=== PATIENT | male | born 1975 | race Caucasian/White ===

== ENCOUNTER → 2017-11-22 07:01 | Outpatient (CLI) | payer BC, SELFPAY ==
[2017-11-22 10:26] LABS: Absolute Lymphocyte Count 1.51 X10^3/ul (0.83-4.51); Basophil# 0.03 X10^3/uL; Basophil% 0.6 % (0-1); Eosinophil# 0.17 X10^3/uL; Eosinophils% 3.2 % (0-5); Hematocrit 44.1 % (40-54); Hemoglobin 15.2 g/dl (13.0-16.5); Lymphocyte # 1.51 X10^3/ul (4.0); Lymphocyte % 28.1 % (19-41); Mean Corp Hgb Conc 34.5 g/gl (32-36); Mean Corpuscular Hgb 31.1 pg (27.0-32.0); Mean Corpuscular Volume 90.2 fL (80-94); Mean Platelet Vol. 10.7 fl (6.2-12.0); Monocyte# 0.61 X10^3/uL; Monocyte% 11.4 % (0-10); Neutrophil # 3.04 X10^3/uL (2.7-7.7); Neutrophil % 56.5 % (47-70); Platelet Count 230 K/mm3 (150-450); RBC Distribution Width CV 12.5 % (11.6-14.6); RBC Distribution Width SD 40.9 fl (35.1-43.9); Red Blood Count 4.89 M/mm3 (4.6-6.2); White Blood Count 5.4 K/mm3 (4.4-11.0)
[2017-11-22 10:30] LABS: POSITIVE COUNT NO; POSITIVE DIFFERENTIAL NO; POSITIVE MORPHOLOGY NO
[2017-11-22 10:43] LABS: Vitamin B12 303 pg/mL (211-911)
[2017-11-22 10:48] LABS: ALB/GLOB Ratio 1.1 RATIO (0.9-2.4); AST(SGOT) 29 U/L (15-37); Alanine Aminotransfer ALT/SGPT 66 U/L (16-61); Albumin, Serum 3.9 g/dL (3.2-5.0); Alkaline Phosphatase 70 U/L (45-117); Anion Gap 12 (5-15); BUN 12 mg/dL (7-18); Calcium,Total 8.6 mg/dL (8.5-10.1); Chloride 104 mmol/L (98-107); Cholesterol 165 mg/dL (200); Creatinine, Serum 0.86 mg/dL (0.70-1.30); EST Glomerular Filtration Rate 103 mL/min (>60); Est Glom Filt Rate - Afr Amer 124 mL/min (>60); Globulin 3.4 g/dL (2.2-4.2); Glucose 122 mg/dL (74-106); High Density Lipoprotein 30 mg/dL; PSA,Total - Annual Screen 1.26 ng/mL (0.00-4.00); Potassium 4.1 mmol/L (3.5-5.1); Protein, Total 7.3 g/dL (6.4-8.2); Sodium Level 140 mmol/L (136-145); T4 Total, Thyroxin 10.2 ug/dL (4.5-12.1); Thyroid Stim Hormone (TSH) 1.13 uIU/mL (0.358-3.74); Triglycerides 223 mg/dL; Very Low Density Lipoprotein 45 mg/dL (5-40)
== END ==
PROVIDERS: Family Provider Internal Medicine; PCP Internal Medicine; Visit Provider Physician Assistant
DX: E66.9 Obesity, unspecified (principal)
CPT/HCPCS: 36415; 80053; 80061; 82607; 84153; 84403; 84436; 84443; 85025; G0103

== ENCOUNTER → 2018-08-12 | Outpatient (CLI) | payer BC, SELFPAY ==
--- NOTE | 2018-08-12 09:40 | STRESSREP ---
Stress Test Report Date: 08-12-18 Procedure: Exercise tolerance test/imaging study Indications: Fatigue; elevated CRP Consent: Per the patient Procedure: The patient exercised on a Dong protocol for 8 minutes completing Stage II and 2 minutes of Stage III achieving a peak heart rate of 164 bpm (93 % predicted maximal heart rate) with a peak blood pressure 210/110 mmHg and a peak MET capacity of 9 METs. The baseline ECG demonstrated normal sinus rhythm; nonspecific T wave abnormality. The peak exercise ECG demonstrated continued nonspecific T wave abnormality. There were no cardiac dysrhythmias pretest, during exercise, or recovery. The functional capacity was considered average. There was no complaint of chest discomfort during exercise or recovery. The examination was discontinued secondary to knee discomfort. Impression: 1. Technically adequate (percent predicted maximal heart rate greater than 85%) exercise tolerance test 2. Peak exercise ECG with continued nonspecific T wave abnormality 3. There were no cardiac dysrhythmias pretest, during exercise, or recovery 4. Blood pressure response to exercise: Resting hypertension-exaggerated response 5. Nuclear images pending Myocardial perfusion imaging study: Technique: The patient was injected with 14.8 mCi of technetium 99m Cardiolite and subsequently rest SPECT Cardiolite nuclear imaging was obtained in the horizontal long, vertical long, and short axis views. The patient exercised on a Dong protocol for 8 minutes completing Stage II and 2 minutes of Stage III achieving a peak heart rate of 164 bpm (93 % predicted maximal heart rate) with a peak blood pressure 210/110 mmHg and a peak MET capacity of 9 METs. The patient was injected with 44.7 mCi of technetium 99m Cardiolite and subsequently stress SPECT Cardiolite nuclear imaging was obtained in the horizontal long, vertical long, and short axis views. A gated Cardiolite study at peak stress was obtained. Interpretation: Rest and stress SPECT Cardiolite nuclear imaging status post realignment, normalization, and attenuation correction, demonstrates the appearance of relative uniform tracer uptake and myocardial perfusion appearing within normal limits. There is end systolic thickening and brightening. The gated Cardiolite study demonstrates myocardial thickening and inward wall motion. The reported LVEF is the 65 %. Impression: 1. Rest and stress SPECT Cardiolite nuclear imaging demonstrate relative uniform tracer uptake and myocardial perfusion appearing within normal limits. 2. The gated Cardiolite study reports an LVEF of 65 %. This note was generated with Dailysingle software. It may contain incorrect words, spelling, and punctuation that were not noted in checking the note before signing.
== END | disposition home or self-care (01) ==
PROVIDERS: Family Provider Internal Medicine; PCP Internal Medicine; Referring Provider Registered Nurse; Visit Provider Registered Nurse
DX: R79.82 Elevated C-reactive protein (CRP) (principal); R53.83 Other fatigue
CPT/HCPCS: 78452; 93017; A9500; A4216

== ENCOUNTER → 2020-04-20 08:41 | Outpatient (CLI) | payer BC, SELFPAY ==
[2020-04-20 09:43] LABS: Hematocrit 52.1 % (40-54); Hemoglobin 17.5 g/dL (13.0-16.5); Mean Corp Hgb Conc 33.6 g/dL (32-36); Mean Corpuscular Volume 92.2 fL (80-94); Mean Platelet Vol. 10.2 fl (6.2-12.0); Platelet Count 193 K/mm3 (150-450); RBC Distribution Width SD 41.1 fl (35.1-43.9); Red Blood Count 5.65 M/mm3 (4.6-6.2); White Blood Count 5.6 K/mm3 (4.4-11.0)
[2020-04-20 10:15] LABS: Hemoglobin A1c 5.9 % (3.8-5.6)
[2020-04-20 10:23] LABS: Homocysteine 8.4 umol/L (3.2-10.7)
[2020-04-20 10:52] LABS: ALB/GLOB Ratio 1.2 RATIO (0.9-2.4); AST(SGOT) 25 U/L (15-37); Alanine Aminotransfer ALT/SGPT 62 U/L (16-61); Albumin, Serum 4.1 g/dL (3.2-5.0); Alkaline Phosphatase 71 U/L (45-117); Anion Gap 3 (5-15); BUN 8 mg/dL (7-18); BUN/Creat Ratio 7.7 RATIO (10-20); CRP, High Sensitivity Cardiac 4.74 mg/L; Calcium,Total 8.7 mg/dL (8.5-10.1); Chloride 107 mmol/L (98-107); Cholesterol 153 mg/dL (200); Creatinine, Serum 1.04 mg/dL (0.70-1.30); EST Glomerular Filtration Rate 81 mL/min (>60); Est Glom Filt Rate - Afr Amer 99 mL/min (>60); Estradiol 51.1 pg/mL; Follicle Stimulating Hormone 0.2 mIU/mL; Globulin 3.4 g/dL (2.2-4.2); Glucose 119 mg/dL (74-106); High Density Lipoprotein 28 mg/dL; Iron 101 ug/dL (65-175); Luteinizing Hormone < 0.2 mIU/mL; Magnesium 2.2 mg/dL (1.6-2.6); PSA,Total - Annual Screen 2.09 ng/mL (0.00-4.00); Potassium 4.5 mmol/L (3.5-5.1); Prolactin 8.9 ng/mL; Protein, Total 7.5 g/dL (6.4-8.2); Sodium Level 136 mmol/L (136-145); T4 Free Direct 1.06 ng/dL (0.76-1.46); T4 Total, Thyroxin 8.4 ug/dL (4.5-12.1); Thyroid Stim Hormone (TSH) 0.95 uIU/mL (0.358-3.74); Triglycerides 184 mg/dL; Very Low Density Lipoprotein 37 mg/dL (5-40)
[2020-04-22 08:19] LABS: Progesterone Level 0.52 ng/mL (See Comment); Vitamin B12 384 pg/mL (211-911); Vitamin D,25 Hydroxy 108.9 ng/mL
[2020-04-24 08:08] LABS: Insulin Like Growth Factor 104 ng/mL (81-263); Testosterone, % Free 3.68 % (1.50-4.20); Testosterone, Free 20.87 ng/dL (5.00-21.00)
[2020-04-24 15:24] LABS: Sex Hormone-binding Globulin 19.8 nmol/L (16.5-55.9); Testosterone, Total 567 ng/dL (264-916)
== END ==
PROVIDERS: PCP Internal Medicine; Referring Provider Nurse Practitioner Family; Visit Provider Nurse Practitioner Family
DX: R53.82 Chronic fatigue, unspecified (principal); M62.81 Muscle weakness (generalized); E66.9 Obesity, unspecified; E29.1 Testicular hypofunction
CPT/HCPCS: 36415; 80053; 80061; 82306; 82533; 82607; 82627; 82670; 82746; 83001; 83002; 83036; 83090; 83540; 83735; 84144; 84146; 84153; 84270; 84305; 84402; 84403; 84436; 84439; 84443; 84480; 85027; 86141; 82626; G0103

== ENCOUNTER 2022-07-03 05:21 | Emergency (ER) | payer OTHER, SELFPAY ==
[2022-07-03 05:21] VITALS: BP 189/105; PULSE 72; RESP 15; TEMP 36.6; O2SAT 97; BMI 44.4
--- NOTE | 2022-07-03 05:46 | CT_ITS ---
EXAM: CT Abdomen And Pelvis W/O Contrast Injection HISTORY: left flank pain TECHNIQUE: Routine protocol CT abdomen and pelvis. IV Contrast: None.. Oral contrast: None. RADIATION DOSAGE (If Supplied By Facility): CTDIvol = ( 34.32 ) mGy, DLP = ( 2118.15 ) mGycm Individualized dose optimization techniques were used for this CT. COMPARISON: None. LIMITATIONS: None. FINDINGS: LOWER CHEST: Included lung bases are clear. Mild coronary artery calcifications. LIVER: Enlarged. Fatty infiltration. GALLBLADDER AND BILIARY TREE: Grossly unremarkable. PANCREAS: Grossly unremarkable. SPLEEN: Grossly unremarkable. ADRENAL GLANDS: Grossly unremarkable. KIDNEYS AND URETERS: There are 2 calculi aligned in the distal left ureter at the ureterovesical junction, distal is 3 mm, and immediately proximal 2 mm calculus. The left ureter is dilated with mild left hydronephrosis and perinephric stranding. Several calculi in both kidneys. No hydronephrosis on the right. No hydronephrosis. PERITONEUM: No free air. No free fluid. BOWEL: No bowel obstruction. APPENDIX: Visualized and unremarkable. No evidence of acute appendicitis. VESSELS: Abdominal aorta is normal caliber. REPRODUCTIVE ORGANS: Grossly unremarkable URINARY BLADDER: Grossly unremarkable. ABDOMINAL WALL: Small bilateral inguinal hernias containing only fat, no bowel. BONES: Degenerative changes of the lumbar spine. CT/Abdomen/Pelvis without Cont IMPRESSION: Left ureteral calculi, 2 calculi in the distal left ureter, with mild left hydroureteronephrosis. Bilateral nephrolithiasis. Hepatomegaly and steatosis. Electronically Signed: Terri Eugene MD at 7:14 EDT ,
[2022-07-03 05:54] LABS: Absolute Lymphocyte Count 2.49 X10^3/uL (0.83-4.51); Absolute Neutrophil Count 5.3 X10^3/uL (2.0-7.7); Basophil# 0.06 X10^3/uL; Basophil% 0.7 % (0-1); Eosinophil# 0.15 X10^3/uL; Eosinophils% 1.6 % (0-5); Hematocrit 46.7 % (40-54); Hemoglobin 16.1 g/dL (13.0-16.5); Lymphocyte # 2.49 X10^3/ul (0.83-4.51); Lymphocyte % 27.2 % (19-41); Mean Corp Hgb Conc 34.5 g/dL (32-36); Mean Corpuscular Hgb 31.8 pg (27.0-32.0); Mean Corpuscular Volume 92.1 fL (80-94); Mean Platelet Vol. 10.5 fl (6.2-12.0); Monocyte# 1.07 X10^3/uL; Monocyte% 11.7 % (0-10); NRBC Flagged by Analyzer 0 % (0-5); Neutrophil # 5.34 X10^3/uL (2.7-7.7); Neutrophil % 58.5 % (47-70); Platelet Count 209 K/mm3 (150-450); RBC Distribution Width CV 12.1 % (11.6-14.6); RBC Distribution Width SD 40.6 fl (35.1-43.9); Red Blood Count 5.07 M/mm3 (4.6-6.2); White Blood Count 9.1 K/mm3 (4.4-11.0)
[2022-07-03] MEDS: Ketorolac 30 MG/ML Syringe IV (05:55)
[2022-07-03] MEDS: 0.9% Normal Saline 1,000 ML 999 ML IV (05:56)
[2022-07-03 05:59] LABS: Bacteria 0 SEEN /hpf (None Seen); Mucous, Urine 0 SEEN /hpf (<or=2+); Squamous Epithelial Cells - UA 0 SEEN /hpf (0-5); White Blood Cells 0 SEEN /hpf (0-5)
[2022-07-03 06:00] LABS: Color, Urine Yellow (Yellow); Glucose, Dipstick 100 mg/dl (Normal); Ketone-Dipstick 5 mg/dl (Negative); Leukocyte Esterase-Dipstick Negative /ul (Negative); Nitrite-Dipstick Negative (Negative); Occult Blood-Urine 150 /ul (Negative); Protein-Dipstick 30 mg/dl (Negative); Specific Gravity, Urine 1.025 (1.002-1.030); Urine Bilirubin Dipstick Negative (Negative); Urine Clarity Clear (Clear); Urine Urobilinogen Normal (Normal)
[2022-07-03 06:06] LABS: Red Blood Cells-Urine 10-25 SEEN /hpf (0-5)
--- NOTE | 2022-07-03 06:32 | EDS_ITS ---
HPI History of Present Illness Chief Complaint: Abd Pain Narrative Narrative: Patient is a 47-year-old male with no reported significant past medical history. He states that he noticed some pain in his left side yesterday morning which seemed to resolve throughout the day. He states the pain began to return around bedtime but it was not severe enough where he could not fall asleep. He states he woke around 3:30 in the morning with sharp stabbing pain along the left upper abdomen radiating towards the groin. He states he became nauseous secondary to the pain. He denies any recent trauma or excessive activity. He denies any dysuria or hematuria. He denies any IV drug use or loss of bowel or bladder control. He does state that his father and brother have history of kidney stones and he is concerned he may be having 1 at this time based on the sudden onset of his pain and therefore comes in for evaluation [facility] Medical History no medical history no medical history Home Medications ketorolac 10 mg tablet 10 mg PO 4X/DAY PRN PRN pain 5 days #20 tabs 07/03/22 [Rx Last Taken Unknown] oxycodone-acetaminophen 5 mg-325 mg tablet (Endocet) 1 tab PO Q6H PRN pain 3 days #12 tabs 07/03/22 [Rx Last Taken Unknown] tamsulosin 0.4 mg capsule (Flomax) 0.4 mg PO DAILY 14 days #14 caps 07/03/22 [Rx Last Taken Unknown] Allergy/AdvReac Type Severity Reaction Status Date / Time No Known Allergies Allergy Verified 07/03/22 05:24 Surgical History H/O foot surgery History of hernia surgery Hx of knee surgery Social History Smoking Status: Unknown if ever smoked ROS ROS ED Constitutional Constitutional ED: Denies chills or fever(s) ENT ENT ED: Denies sore throat Cardiovascular Cardiovascular: Denies chest pain Respiratory/Chest Respiratory/Chest: Denies cough or dyspnea Gastrointestinal Gastrointestinal: Reports abdominal pain and nausea; Denies diarrhea or vomiting Genitourinary Genitourinary ED: Denies dysuria, hematuria or urinary frequency Musculoskeletal Musculoskeletal: Reports back pain; Denies myalgias Integumentary Denies rash Neurologic Neurologic: Denies headache(s) Hematologic/Lymphatic Hematologic/Lymphatic: Denies easy bleeding or easy bruising EXAM Physical Exam Const Vital Signs: 07/03/22 05:21 07/03/22 06:58 Temperature 97.8 F Temperature Source Oral Pulse Rate 72 77 Respiratory Rate 15 15 Blood Pressure 189/105 H 175/103 H Blood Pressure Mean 133 127 Pulse Ox 97 97 Oxygen Delivery Method Room Air Room Air Positive well nourished, well developed and obese General Appearance ED: well developed Nutritional Appearance: obese Eyes PERRL and EOMs intact bilaterally General Eye ED: Negative for scleral icterus Neck supple Chest Wall palpation of chest normal Resp normal respiratory effort and clear to auscultation bilaterally Cardio regular rate and regular rhythm Rate: other Other Details: Radial pulses are plus 2 out of 4 bilaterally are equal and symmetric Carotid pulses are also equal and symmetric as well GI non-distended GI Narrative: Abdomen is obese soft and nondistended with normal active bowel sounds. There is pain on palpation along the left mid abdomen without voluntary guarding or rigidity. No fluid wave or pulsatile mass. Auscultation: normoactive bowel sounds Palpation: soft Back/Spine Back/Spine Narrative: Positive left CVA pain Extremity normal to inspection Neuro oriented x3 and CN's II-XII intact bilaterally Sensorium / Orientation: alert Psych mental status grossly normal Skin no rashes or lesions noted Skin Narrative: No overlying soft tissue skin changes to suggest trauma or infection General Skin Exam: Negative for jaundice MDM MDM MDM Narrative Medical decision making narrative: Patient presented to the ER hypertensive but otherwise with stable vitals. He reported a sudden onset of pain yesterday which improved and then worsened spontaneously this evening/morning. He denied any dysuria and therefore my concern for UTI is low. He also denied any loss of bowel or bladder control or IV drug use so concern for cauda equina or epidural abscess is low as well. The re is no overlying soft tissue skin changes to suggest infection such as cellulitis or shingles. Patient states that there is no improvement or worsening of pain with motion. Therefore at this time concern is for kidney stone and secondary to his basic blood work with a urine and a noncontrast CT will be obtained. Labs showed blood within the urine consistent with kidney stone but otherwise no clinically significant findings. CT scan showed a stone within the left and right kidney and 2 stones within the bladder consistent with a recently passed kidney stone. At this time the patient does not have urosepsis or acute kidney injury and the pain has improved with Toradol. Therefore patient is otherwise safe for discharge and can follow-up with urology on an outpatient basis While awaiting for the official CT read the patient's pain returned so he was given morphine. This did help improve the pain but he was still complaining of more pain than when he initially arrived and secondary to his Dilaudid will be added. I am hopeful that with Toradol morphine and Dilaudid the patient's pain will be controlled and he will be able to be discharged with Toradol and Percocet and Flomax. The case will be signed out to Dr. Bianchi pending the patient's response to the Dilaudid. The patient was informed that if we do have to admit for intractable pain that he cannot stay at our facility as we do not have urology on-call today. History & Record Review Discussion w/independent historian: Patient and Significant other Lab Data Attestation: I reviewed the patient's lab results. Labs: Laboratory Results - last 24 hr 07/03/22 07/03/22 07/03/22 05:25 05:25 05:55 WBC 9.1 RBC 5.07 Hgb 16.1 Hct 46.7 MCV 92.1 MCH 31.8 MCHC 34.5 RDW Std Deviation 40.6 RDW Coeff of Vivien 12.1 Plt Count 209 MPV 10.5 Immature Gran % (Auto) 0.300 Neut % (Auto) 58.5 Lymph % (Auto) 27.2 [place] % (Auto) 11.7 H Eos % (Auto) 1.6 Baso % (Auto) 0.7 Absolute Neuts (auto) 5.3 Absolute Lymphs (auto) 2.49 Nucleated RBC % 0 Sodium 137 Potassium 4.4 Chloride 106 Carbon Dioxide 24.0 Anion Gap 7 BUN 25 H Creatinine 1.18 Estim Creat Clear Calc 90.51 Est GFR (MDRD) Af Amer 84 Est GFR (MDRD) Non-Af 70 BUN/Creatinine Ratio 21.2 H Glucose 256 H Calcium 8.9 Urine Color Yellow Urine Clarity Clear Urine pH 5.0 Ur Specific [place] 1.025 Urine Protein 30 H Urine Glucose (UA) 100 H Urine Ketones 5 H Urine Occult Blood 150 H Urine Nitrite Negative Urine Bilirubin Negative Urine Urobilinogen Normal Ur Leukocyte Esterase Negative Urine RBC 10-25 SEEN Urine WBC 0 SEEN Ur Squamous Epith Cells 0 SEEN Urine Bacteria 0 SEEN Urine Mucus 0 SEEN Radiography Diagnostic Testing: Clinical Impression(s) from Imaging Studies Abdomen/Pelvis CT 07/03/22 05:46 IMPRESSION: Left ureteral calculi, 2 calculi in the distal left ureter, with mild left hydroureteronephrosis. Bilateral nephrolithiasis. Hepatomegaly and steatosis. Electronically Signed: Terri Eugene MD at 7:14 EDT Reading Location ID and State: [facility] / [place] Tel , Service support , Discharge Plan Triage Chief Complaint: Abd Pain ED Provider: Fercho Rodriguez Dx/Rx/DC Orders Clinical Impression: Kidney stone, Renal colic Instructions: ED Kidney Stone w/ Colic Prescriptions: New oxycodone-acetaminophen [Endocet] 5-325 mg tablet 1 tab PO Q6H PRN (Reason: pain) 3 Days Qty: 12 0RF tamsulosin [Flomax] 0.4 mg capsule 0.4 mg PO DAILY 14 Days Qty: 14 0RF ketorolac 10 mg tablet 10 mg PO 4X/DAY PRN PRN (Reason: pain) 5 Days Qty: 20 0RF Primary Care Provider: Care Physician,No Primary Referrals: Kenton Angel MD [Med Staff - Active Staff] - Care Physician,No Primary [Primary Care Provider] - Activity Restrictions/Additional Instructions: Please keep yourself well-hydrated and stay active. Follow-up with urology for repeat evaluation. If you develop a fever over 100.4 or your pain is not controlled please return to the ER for repeat evaluation Disposition Disposition: Home, Self Care
[2022-07-03 06:36] LABS: Anion Gap 7 (5-15); BUN 25 mg/dL (7-18); BUN/Creat Ratio 21.2 RATIO (10-20); Calcium,Total 8.9 mg/dL (8.5-10.1); Chloride 106 mmol/L (98-107); Creatinine, Serum 1.18 mg/dL (0.70-1.30); EST Glomerular Filtration Rate 70 mL/min (>60); Est Glom Filt Rate - Afr Amer 84 mL/min (>60); Estimated Creatinine Clearance 90.51 ml/min; Glucose 256 mg/dL (74-106); Potassium 4.4 mmol/L (3.5-5.1); Sodium Level 137 mmol/L (136-145)
[2022-07-03] MEDS: Ondansetron 4 MG/2 ML Vial IV (06:53)
[2022-07-03] MEDS: Morphine 4 MG/ML Syringe IV (06:54)
[2022-07-03 06:58] VITALS: BP 175/103; PULSE 77; RESP 15; O2SAT 97
[2022-07-03] MEDS: HYDROmorphone 1 MG/ML Syringe IV (07:30)
== END 2022-07-03 07:55 | disposition home or self-care (01) ==
PROVIDERS: Emergency Provider Emergency Medicine; Visit Provider Emergency Medicine
DX: N13.2 Hydronephrosis with renal and ureteral calculous obstruction (principal); N23 Unspecified renal colic; E66.9 Obesity, unspecified
CPT/HCPCS: 74176; 80048; 81001; 85025; 96374; 96375; 99283; J7030; A4216; J2405

== ENCOUNTER → 2022-10-23 | Outpatient (CLI) | payer OTHER, SELFPAY ==
[2022-10-23 08:22] LABS: Microalbumin,Random Urine 12.8 mg/L (NO RANGE EST.); Microalbumin:Creatinine Ratio 9.8 mg/g CRE (<30 mg/g CRE)
[2022-10-23 08:39] LABS: ALB/GLOB Ratio 1.1 RATIO (0.9-2.4); AST(SGOT) 44 U/L (15-37); Alanine Aminotransfer ALT/SGPT 75 U/L (16-61); Albumin, Serum 3.8 g/dL (3.2-5.0); Alkaline Phosphatase 90 U/L (45-117); Anion Gap 5 (5-15); BUN 15 mg/dL (7-18); BUN/Creat Ratio 15.2 RATIO (10-20); Calcium,Total 8.7 mg/dL (8.5-10.1); Chloride 107 mmol/L (98-107); Cholesterol 176 mg/dL (200); Creatinine, Serum 0.99 mg/dL (0.70-1.30); EST Glomerular Filtration Rate 86 mL/min (>60); Est Glom Filt Rate - Afr Amer 104 mL/min (>60); Globulin 3.6 g/dL (2.2-4.2); Glucose 213 mg/dL (74-106); High Density Lipoprotein 28 mg/dL; Potassium 4.2 mmol/L (3.5-5.1); Protein, Total 7.4 g/dL (6.4-8.2); Sodium Level 136 mmol/L (136-145); Triglycerides 483 mg/dL
[2022-10-23 08:40] LABS: Vitamin B12 334 pg/mL (211-911); Vitamin D,25 Hydroxy 24.6 ng/mL
== END | disposition home or self-care (01) ==
LOC: LAB 07:36
PROVIDERS: Referring Provider Internal Medicine; Visit Provider Internal Medicine
DX: E56.9 Vitamin deficiency, unspecified (principal); E11.65 Type 2 diabetes mellitus with hyperglycemia
CPT/HCPCS: 36415; 80053; 80061; 82043; 82306; 82570; 82607

== ENCOUNTER 2022-11-03 09:20 | Outpatient (RCR) | payer OTHER, SELFPAY | END 2022-11-26 23:59 | LOC: NS 09:20 | PROVIDERS: PCP Internal Medicine; Visit Provider Internal Medicine | DX: Z71.3 Dietary counseling and surveillance (principal); E66.01 Morbid (severe) obesity due to excess calories; E11.65 Type 2 diabetes mellitus with hyperglycemia | CPT/HCPCS: 97802 ==

== ENCOUNTER 2023-01-07 05:57 | Day surgery (SDC) | payer OTHER, SELFPAY ==
[2023-01-07 06:36] VITALS: BP 145/108; PULSE 71; RESP 16; TEMP 36; O2SAT 98; BMI 42.5
[2023-01-07] MEDS: Lactated Ringers 1,000 ML 15 ML IV (06:41)
--- NOTE | 2023-01-07 07:29 | HP.PCM_ITS ---
History and Physical Date of Service: 12/11/22 MR#: [id number] Acct: [id number] Name: JOSE RAUL LAURA SEAN Rep #: [id number] : 1975 Provider: Dr. 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 Required: No Is patient in pain?: No Allergies No Known Allergies Allergy (Verified 12/11/22 13:43) Medications tirzepatide 7.5 mg/0.5 mL subcutaneous pen injector 7.5 mg (0.5 mL) subcut QWEEK #2 mL 11/23/22 [Rx Confirmed 12/11/22] mecobalamin (vitamin B12) 10,000 mcg solution for injection 10,000 mcg IM .q week 12/11/22 [History Confirmed 12/11/22] PFSH Medical History Kidney stone Vitamin deficiency Surgical History H/O foot surgery History of hernia surgery Hx of knee surgery Family History Daughter Bleeding disorder Von WillebrandsFather Diabetes Myocardial infarctionGrandfather Cancer oralGrandmother Liver diseaseGrandfather Lung disease Social History household members: spouse current occupational status: employed 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 They are referred for surgical consultation from Dr. Rock. Patient has no personal history of inflammatory bowel disease, diverticulitis, or colon cancer. They describe their bowel habits as normal. They have approximately 1-2 per day and spend roughly 5-10 minutes on the toilet without significant straining. They have not noticed recent bleeding or dark stools. They do not regularly take fiber supplements, but do report significant dietary fiber. Patient has no family history of colon cancer, inflammatory bowel disease, or diverticulitis. The patient's weight is not stable and he states that he has gained some weight that he cannot seem to lose yet while being on Mounjaro and increasing his activity. The patient is not prescribed anticoagulants/blood thinners. Relevant prior abdominal surgical history includes: Pediatric umbilical hernia repair Patient does not have a significant history of GERD/heartburn and states that he experiences symptoms only once every 3 to 4 months. ROS General General: Yes weight change; No appetite, fatigue, colon cancer, breast cancer or weakness HEENT HEENT: No difficulty swallowing, eye injury, eye surgery, swollen glands or hoarseness Endo Endocrine: Yes diabetes mellitus; No thyroid disease, thyroid cancer, Hair loss, heat intolerance or cold intolerance Musc Musculoskeletal: No back problems, arthritis, rheumatoid arthritis, gout or joint pain Cardio Cardiovascular: No murmur, pacemaker, heart disease, atrial fibrillation, high blood pressure, heart attack, heart stent, palpitations, shortness of breat with exertion or chest pain Psych Psychiatric: No depression, anxiety or hearing voices Resp Respiratory: No shortness of breath, No sleep apnea, No cough, No COPD, No asthma, No emphysema and No wheezing Gastro Gastrointestinal: No abdominal pain, No nausea or vomiting, No diarrhea, No constipation, No blood in stool, No acid reflux, No hemorrhoids, No ulcers, No gallbladder problem and No black,tarry stools Shun Hematologic: No blood thinners, No blood disorders, No bleeding, No anemia and No blood clots Neuro Neurologic: No weakness Exam Const General: cooperative Orientation: alert, awake and oriented x3 Resp Effort & Inspection: normal respiratory effort GI Other: Obese, small (subcentimeter) umbilical hernia, nontender, no scars, soft, nontender to palpation x4 quadrants Assessment and Plan Assessment and Plan (1) Encounter for screening for malignant neoplasm of colon: Status: Acute Comment: Patient is a 47-year-old male who appears to be at average risk for colon cancer per history and presents for possible screening colonoscopy. He denies any pres ent issues with his bowel activity. I did discuss with him at some length that I would strongly recommend him continuing faithful use of his CPAP during the periprocedural period given the decreased respiratory drive in relation to the MAC sedation. I do not find any cause to pursue an EGD at this time given his infrequent experience of GERD or heartburn. Plan: Plan will be to complete colonoscopy on first mutually agreeable date under local MAC. Pre-procedure prep discussed and paper instructions provided. Patient is also made aware that he will need to have a driver service technician with him the day of the procedure. I have examined the patient and the H&P has been reviewed. There are no clinical changes since date of exam. Patient confirms that he completed a prep in anticipation of today's procedure. Post procedure expectations for results were also reviewed. Patient and his have no further questions. We will proceed to endoscopy suite for planned colonoscopy as discussed above.
--- NOTE | 2023-01-07 07:30 | COLBX_PTH ---
PATIENT: JOSE RAUL LAURA LOC: EN U#:[id number] AGE/SX: 47/M ROOM: RE01/07/[address]: Dr. Andre Salgado MD : 1975 BED: DIS: 01/07/2023 SPEC #: [id number] RECD: 01/07/23 11:10 STATUS: DARSHAN REJoey #: [id number] SAMANTHA: 01/07/23 07:[address]: Andre Salgado DEPT: SURGICAL PATHOLOGY RECD BY: Abimbola Foster ENTERED: 01/07/23 11:32 SP TYPE: COLON BX OTHR DR: Dr. Britt Rock MD Tissues: A - Transverse colon B - Descending colon Procedures: Surgery Specimen Level IV HEADER OPERATION: Colonoscopy with polypectomy PRE-OP DIAGNOSIS: Screening TISSUE SUBMITTED: A - Proximal transverse colon polyp, B - Descending colon polyp MICROSCOPIC DIAGNOSIS A. Proximal transverse colon polyp, biopsy: Fragments of tubular adenoma. B. Descending colon polyp, biopsy: Tubular adenoma. AM:gretchen 01/08/2023 MICROSCOPIC DESCRIPTION Slides are reviewed. GROSS DESCRIPTION A - Received in fixative is one container labeled with the patient's name and designated proximal transverse colon. The specimen consists of multiple irregular fragments of light de anda soft tissue that in aggregate measure 1.0 x 0.6 x 0.1 cm. The specimen is totally submitted in one cassette. B - Received in fixative is one container labeled with the patient's name and designated descending colon polyp. The specimen consists of multiple irregular fragments of light de anda soft tissue that in aggregate measure 1.0 x 0.5 x 0.1 cm. The specimen is totally submitted in one cassette. / AM:gretchen 01/07/2023 TC:5 CPT: 81499 x2
[2023-01-07 08:20] VITALS: BP 121/81; BP 145/99; PULSE 81; RESP 16; TEMP 36.6; O2SAT 97
--- NOTE | 2023-01-07 08:24 | OP.COLON_ITS ---
Patient Name: Chester Mondragon Procedure Date: 01/07/2023 7:24 AM Date of : 1975 Age: 47 Procedure: Colonoscopy Indications: Screening for colorectal malignant neoplasm Providers: Andre Salgado MD Medicines: See the Anesthesia note for documentation of the administered medications Patient Profile: Last Colonoscopy: none. The patient's first colonoscopy is today. Refer to note in patient chart for documentation of history and physical. Complications: No immediate complications. Estimated blood loss: Minimal. Procedure: Pre-Anesthesia Assessment: - The heart rate, respiratory rate, oxygen saturations, blood pressure, adequacy of pulmonary ventilation, and response to care were monitored throughout the procedure. After I obtained informed consent, the scope was passed under direct vision. Throughout the procedure, the patient's blood pressure, pulse, and oxygen saturations were monitored continuously. The colonoscope was introduced through the anus and advanced to the terminal ileum, with identification of the ileocecal valve. The colonoscopy was performed without difficulty. The patient tolerated the procedure well. The quality of the bowel preparation was adequate to identify polyps greater than 5 mm in size. The entire colon was well visualized. Scope In: 7:41:39 AM Scope Withdrawal Time 0 hours 18 minutes 16 seconds Scope Out: 8:14:50 AM Total Procedure Duration Time 0 hours 33 minutes 11 seconds Findings: The perianal and digital rectal examinations were normal. A 5 mm polyp was found in the proximal transverse colon. The polyp was semi-pedunculated. The polyp was removed with a hot snare. Resection and retrieval were complete. Estimated blood loss: none. A single small localized angioectasia without bleeding was found in the sigmoid colon. No biopsies or other specimens were collected for this exam. A 5 mm polyp was found in the proximal descending colon. The polyp was semi-sessile. Biopsies were taken with a cold forceps for histology. Estimated blood loss was minimal. The exam was otherwise without abnormality on direct and retroflexion views. Impression: - One 5 mm polyp in the proximal transverse colon, removed with a hot snare. Resected and retrieved. - A single non-bleeding colonic angioectasia. No specimens collected. - One 5 mm polyp in the proximal descending colon. Biopsied. - The examination was otherwise normal on direct and retroflexion views. Recommendation: - Discharge patient to home (via wheelchair). - Resume previous diet today. - Continue present medications. - Await pathology results. - Repeat colonoscopy date to be determined after pending pathology results are reviewed for surveillance based on pathology results. - Telephone my office for pathology results in 1 week. Procedure Code(s): --- Professional --- 02256, Colonoscopy, flexible; with removal of tumor(s), polyp(s), or other lesion(s) by snare technique 36939, 59, Colonoscopy, flexible; with biopsy, single or multiple Diagnosis Code(s): --- Professional --- Z12.11, Encounter for screening for malignant neoplasm of colon D12.3, Benign neoplasm of transverse colon (hepatic flexure or splenic flexure) D12.4, Benign neoplasm of descending colon K55.20, Angiodysplasia of colon without hemorrhage CPT copyright 2021 [employer]. All rights reserved. The codes documented in this report are preliminary and upon claim trainee review may be revised to meet current compliance requirements. Andre Salgado MD 01/07/2023 8:23:18 AM This report has been signed electronically. Number of Addenda: 0 Note Initiated On: 01/07/2023 7:24 AM
--- NOTE | 2023-01-07 08:24 | OP.CCLET_ITS ---
01/07/2023 Britt Rock Md Re : Colonoscopy procedure for Chester Mondragon Dear Shweta This procedure was performed on December. My impressions and recommendations are as follows: Impressions : - One 5 mm polyp in the proximal transverse colon, removed with a hot snare. Resected and retrieved. - A single non-bleeding colonic angioectasia. No specimens collected. - One 5 mm polyp in the proximal descending colon. Biopsied. - The examination was otherwise normal on direct and retroflexion views. Recommendations : - Discharge patient to home (via wheelchair). - Resume previous diet today. - Continue present medications. - Await pathology results. - Repeat colonoscopy date to be determined after pending pathology results are reviewed for surveillance based on pathology results. - Telephone my office for pathology results in 1 week. My findings are described in the full procedure note, which is enclosed. If I can be of further assistance, please feel free to contact me at Doctor phone number(s): , Work: . Sincerely, Andre Salgado MD 01/07/2023 8:23:18 AM This report has been signed electronically.
[2023-01-07 08:25] VITALS: BP 128/88; BP 145/99; PULSE 70; RESP 16; O2SAT 100
[2023-01-07 08:30] VITALS: BP 130/90; BP 145/99; PULSE 72; RESP 16; O2SAT 100
[2023-01-07 08:35] VITALS: BP 138/89; BP 145/99; PULSE 68; RESP 16; TEMP 36.6; O2SAT 99
[2023-01-07 08:51] VITALS: BP 145/99
[2023-01-07 13:23] LABS: Bedside Glucose 143 mg/dL (74-106)
== END 2023-01-07 08:53 | disposition home or self-care (01) ==
LOC: EN 06:03 → AC 06:08
PROVIDERS: PCP Internal Medicine; Referring Provider Internal Medicine; Visit Provider Surgery
PROC: 0DJD8ZZ Inspection of Lower Intestinal Tract, Via Natural or Artificial Opening Endoscopic (ICD-10-PCS; CPT 45378; principal; 2023-01-07 07:25)
DX: Z12.11 Encounter for screening for malignant neoplasm of colon (principal); D12.3 Benign neoplasm of transverse colon; D12.4 Benign neoplasm of descending colon; K55.20 Angiodysplasia of colon without hemorrhage; Z87.891 Personal history of nicotine dependence
CPT/HCPCS: 45380; 45385; 82962; 88305; J7120; J2405

== ENCOUNTER → 2023-01-26 | Outpatient (CLI) | payer OTHER, SELFPAY ==
[2023-01-26 12:42] LABS: ALB/GLOB Ratio 1.1 RATIO (0.9-2.4); AST(SGOT) 15 U/L (15-37); Alanine Aminotransfer ALT/SGPT 42 U/L (16-61); Albumin, Serum 3.9 g/dL (3.2-5.0); Alkaline Phosphatase 78 U/L (45-117); Anion Gap 7 (5-15); BUN 17 mg/dL (7-18); BUN/Creat Ratio 17.3 RATIO (10-20); Calcium,Total 8.9 mg/dL (8.5-10.1); Chloride 106 mmol/L (98-107); Cholesterol 159 mg/dL (200); Creatinine, Serum 0.98 mg/dL (0.70-1.30); EST Glomerular Filtration Rate 86 mL/min (>60); Est Glom Filt Rate - Afr Amer 104 mL/min (>60); Globulin 3.7 g/dL (2.2-4.2); Glucose 132 mg/dL (74-106); High Density Lipoprotein 28 mg/dL; Potassium 4.1 mmol/L (3.5-5.1); Protein, Total 7.6 g/dL (6.4-8.2); Sodium Level 135 mmol/L (136-145); Triglycerides 235 mg/dL; Very Low Density Lipoprotein 47 mg/dL (5-40)
[2023-01-26 12:46] LABS: Vitamin D,25 Hydroxy 46.8 ng/mL
[2023-01-29 19:07] LABS: Testosterone Free 3.8 pg/mL (6.8-21.5)
== END | disposition home or self-care (01) ==
LOC: BIMLAB 08:13
PROVIDERS: PCP Internal Medicine; Visit Provider Internal Medicine
DX: E55.9 Vitamin D deficiency, unspecified (principal); E11.65 Type 2 diabetes mellitus with hyperglycemia; E78.1 Pure hyperglyceridemia
CPT/HCPCS: 36415; 80053; 80061; 82306; 84402; 84403

== ENCOUNTER → 2023-05-03 | Outpatient (CLI) | payer OTHER, SELFPAY ==
--- OUTSIDE RECORDS SUMMARY | 2023-05-03 10:16 | XMS RPT_ITS | CCD ---
Author Name Unknown Address [address] [place] [address] Organization [facility] Care Team Providers Care Display And Banner Designer Name Role Phone Newton Bazan Unavailable Unavailable Newton Bazan Unavailable Unavailable Newton Bazan Unavailable Unavailable Unavailable Medications Completed/Discontinued Medications Medication Drug Class(es) Dates Sig (Normalized) Sig (Original) testosterone cypionate 100 mg/ml injectable solution (2 sources) Androgen Start: 06-13-2019 inject 0.4 mL by intramuscular injection two times weekly Testosterone Cypionate 100 MG/ML Intramuscular Solution INJECT 0.4 ML twice weekly Refills: 0 Newton Bazan MD Start : 13-Jun-2019 Active Problems Active Problems Problem Classification Problem Date Documented Date Episodic/Chronic Diabetes mellitus without complication (4 sources) Diabetes mellitus; Translations: [Diabetes mellitus without mention of complication, type II or unspecified type, not stated as uncontrolled] Chronic Diabetes mellitus without complication (2 sources) Impaired glucose tolerance; Translations: [IGT (impaired glucose tolerance)] Episodic Disorders of lipid metabolism (4 sources) Hyperlipidemia; Translations: [Other and unspecified hyperlipidemia] Chronic Essential hypertension (4 sources) Essential hypertension; Translations: [Unspecified essential hypertension] Chronic Immunizations and screening for infectious disease (2 sources) Patient encounter status; Translations: [Other specified vaccination] Episodic Other circulatory disease (4 sources) Abnormal blood pressure; Translations: [Other abnormal clinical findings] Episodic Other endocrine disorders (4 sources) Male hypogonadism; Translations: [Other testicular hypofunction] Chronic Other non-traumatic joint disorders (2 sources) Knee pain; Translations: [Knee pain] Episodic Other non-traumatic joint disorders (2 sources) Pain in unspecified knee; Translations: [Knee pain] Episodic Other nutritional; endocrine; and metabolic disorders (4 sources) Simple obesity ; Translations: [Obesity, unspecified] Chronic Other nutritional; endocrine; and metabolic disorders (4 sources) Abnormal weight gain; Translations: [Abnormal weight gain] Episodic Other screening for suspected conditions (not mental disorders or infectious disease) (8 sources) Electrocardiogram abnormal; Translations: [Liver function tests abnormal] Resolved: 09-26-2014 Episodic Other skin disorders (4 sources) Papule of skin; Translations: [Other specified disorders of skin] Episodic Other skin disorders (2 sources) Eruption; Translations: [Rash and other nonspecific skin eruption] Episodic Residual codes; unclassified (4 sources) Obstructive sleep apnea syndrome; Translations: [Obstructive sleep apnea (adult)(pediatric)] Chronic Past or Other Problems Problem Classification Problem Date Documented Da te Episodic/Chronic Other nutritional; endocrine; and metabolic disorders (4 sources) H/O: hypothyroidism; Translations: [Personal history of other endocrine, metabolic, and immunity disorders] Resolved: 09-26-2014 Episodic Other nutritional; endocrine; and metabolic disorders (3 sources) H/O: diabetes mellitus; Translations: [Personal history of other endocrine, metabolic, and immunity disorders] Resolved: 06-14-2019 Episodic Residual codes; unclassified (2 sources) H/O: endocrine disorder; Translations: [Personal history of other endocrine, metabolic, and immunity disorders] Resolved: 01-19-2020 Episodic Unclassified (2 sources) Patient encounter status; Translations: [Encounter for immunization] Unclassified (4 sources) Foot pain, unspecified laterality; Translations: [Foot pain, unspecified laterality] Results Test Name Value Interpretation Reference Range Facil ity Vital Signs Date Time Vital Sign Value Performing Clinician Joel delatorre 09-26-2020 14:49-0400 Diastolic blood pressure 102 mm[Hg] Newton Bazan Work Phone: [facility] Work Phone: 09-26-2020 14:49-0400 Systolic blood pressure 146 mm[Hg] Newton Bazan Work Phone: [facility] Work Phone: 09-26-2020 14:43-0400 Body height 193.04 cm Newton Bazan Work Phone: [facility] Work Phone: 09-26-2020 14:43-0400 Body mass index (BMI) [Ratio] 44.31 kg/m2 Newton Bazan Work Phone: [facility]- Work Phone: 09-26-2020 14:43-0400 Body surface area Derived from formula 2.86 m2 Newton Bazan Work Phone: [facility]- Work Phone: 09-26-2020 14:43-0400 Body temperature 97.7 [degF] Newton Bazan Work Phone: [facility]- Work Phone: 09-26-2020 14:43-0400 Body weight 165.11 kg Newton Bazan Work Phone: [facility]- Work Phone: 09-26-2020 14:43-0400 Diastolic blood pressure 100 mm[Hg] Newton Bazan Work Phone: [facility]- Work Phone: 09-26-2020 14:43-0400 Heart rate 86 /min Newton Bazan Work Phone: [facility]- Work Phone: 09-26-2020 14:43-0400 Systolic blood pressure 142 mm[Hg] Newton Bazan Work Phone: [facility]- Work Phone: 06-13-2019 16:14-0400 BMI (Body Mass Index) 44.31 kg/m2 [facility] Work Phone: 06-13-2019 16:14-0400 Body Temperature 98.5 [degF] Newton Bazan [facility] [facility]- Work Phone: 06-13-2019 16:14-0400 Body weight 165.11 kg [facility] Work Phone: 06-13-2019 16:14-0400 BP Diastolic 96 mm[Hg] Newton [facility] Work Phone: 06-13-2019 16:14-0400 BP Systolic 140 mm[Hg] Newton Bazan [facility]- Work Phone: 06-13-2019 16:14-0400 BSA (Body Surface Area) 2.86 m2 Newton Bazan [facility] Work Phone: 06-13-2019 16:14-0400 Height 193.04 cm [facility] Work Phone: 06-13-2019 16:14-0400 Pulse (Heart Rate) 80 /min [facility]az[facility] Work Phone: Encounters Encounter Date Encounter Type Care Provider Facility Start: 09-26-2020 Office outpatient vi sit 10 minutes Newton Mike Bazan Work Phone: [facility] Work Phone: Procedures Date Procedure Procedure Detail Performing Clinician Hernia repair Newton Bazan Immunizations Immunization Date Immunization Notes Care Provider Fa cility 07-18-2020 Moderna COVID-19 Vac cine 100 MCG/0.5ML Intramuscular Suspension Newton Mckeon Hortensia Work Phone: [facility]- Work Phone: 06-20-2020 Moderna COVID-19 Vac cine 100 MCG/0.5ML Intramuscular Suspension Newton Mike Riosee Work Phone: [facility] Work Phone: 01-19-2020 influenza, injectabl e, quadrivalent, preservative free; Translations: [Flulaval Quadrivalent 0.5 ML Intramuscular Suspension Prefilled Syringe] Newton Mike Bazan Work Phone: [facility] Work Phone: Payers Date Payer Category Payer Policy ID Unknown ANTHEM Social History Date Type Detail Facility No drug use No drug use [facility]- Work Phone: NEGATED: Highlighted row - - [facility] Work Phone: Functional Status Date Assessment Result Facility NEGATED: Highlighted row Functional performance Functional status health issues are not documented Disease [facility] Work Phone: Mental Status Date Assessment Result Facility NEGATED: Highlighted row Cognitive function [Interpretation] Cognitive status health issues are not documented Disease [facility] Work Phone: History of Present illness Narrative Note Date & Type Note Facility History of Present illness Narrative rash for a month [facility]- Work Phone: History of Present illness Narrative Note Date & Type Note Facility History of Present illness Narrative rash for a month [facility] Work Phone: Family History Father Name Dates Details Family history of ASHD (isabela riosclerotic heart disease)(414.00, I25.10) Status:Active Father Name Dates Details Family history of ASHD (isabela riosclerotic heart disease)(414.00, I25.10) Status:Active Unknown Family Member Name Dates Details ASHD (arteriosclerotic heart disease): Father Status:Active Unknown Family Member Name Dates Details ASHD (arteriosclerotic heart disease): Father Status:Active Chief Complaint patient here for a rash x1 monthpatient here for a rash x1 month Summary Purpose Advance Directives No Advanced Directives Records FoundNo Advanced Directives Records Found Additional Source Comments (unrecognized sect ion and content) No Status Records FoundNo Status Records Found INFORMATION SOURCE (unrecogn ized section and content) DATE CREATED AUTHOR AUTHOR'S LIBERTAD AVILA 11/06/2020 [facility] FOR RECORDS PERTAINING TO PATIENTS WHO ARE OR HAVE BEEN ENROLLED IN A CHEMICAL DEPENDENCY/SUBSTANCEABUSE PROGRAM, SOME INFORMATION MAY BE OMITTED. This clinical summary was aggregated from multiple sources. Caution should be exercised in using it in the provision of clinical care. This summary normalizes information from multiple sources, and as a consequence, information in this document may materially change the coding, format and clinical context of patient data. In addition, data may be omitted in some cases. CLINICAL DECISIONS SHOULD BE BASED ON THE PRIMARY CLINICAL RECORDS. [facility]. provides no warranty or guarantee of the accuracy or completeness of information in this document.
[2023-05-03 12:24] LABS: Absolute Lymphocyte Count 1.83 X10^3/uL (0.83-4.51); Absolute Neutrophil Count 5.9 X10^3/uL (2.0-7.7); Basophil# 0.06 X10^3/uL; Basophil% 0.7 % (0-1); Eosinophil# 0.11 X10^3/uL; Eosinophils% 1.3 % (0-5); Hematocrit 48.8 % (40-54); Hemoglobin 16.1 g/dL (13.0-16.5); Lymphocyte # 1.83 X10^3/ul (0.83-4.51); Mean Corpuscular Hgb 30.2 pg (27.0-32.0); Mean Corpuscular Volume 91.6 fL (80-94); Mean Platelet Vol. 10.6 fl (6.2-12.0); Monocyte# 0.77 X10^3/uL; Monocyte% 8.8 % (0-10); NRBC Flagged by Analyzer 0 % (0-5); Neutrophil # 5.93 X10^3/uL (2.7-7.7); Neutrophil % 67.9 % (47-70); Platelet Count 225 K/mm3 (150-450); RBC Distribution Width CV 12.4 % (11.6-14.6); Red Blood Count 5.33 M/mm3 (4.6-6.2); White Blood Count 8.7 K/mm3 (4.4-11.0)
[2023-05-03 13:01] LABS: Vitamin D,25 Hydroxy 90.8 ng/mL
[2023-05-03 13:06] LABS: AST(SGOT) 6 U/L (15-37); Alanine Aminotransfer ALT/SGPT 39 U/L (16-61); Albumin, Serum 4.1 g/dL (3.2-5.0); Alkaline Phosphatase 89 U/L (45-117); Anion Gap 6 (5-15); BUN 12 mg/dL (7-18); BUN/Creat Ratio 11.3 RATIO (10-20); Calcium,Total 9.6 mg/dL (8.5-10.1); Chloride 107 mmol/L (98-107); Cholesterol 180 mg/dL (200); Creatinine, Serum 1.06 mg/dL (0.70-1.30); EST Glomerular Filtration Rate 79 mL/min (>60); Est Glom Filt Rate - Afr Amer 95 mL/min (>60); Globulin 4.1 g/dL (2.2-4.2); Glucose 129 mg/dL (74-106); High Density Lipoprotein 32 mg/dL; Lipase 31 U/L (13-75); Potassium 4.6 mmol/L (3.5-5.1); Protein, Total 8.2 g/dL (6.4-8.2); Sodium Level 139 mmol/L (136-145); Triglycerides 236 mg/dL; Troponin-I HS 3 pg/mL (3.0-78.0); Very Low Density Lipoprotein 47 mg/dL (5-40)
[2023-05-03 13:14] LABS: Hemoglobin A1c 5.9 % (3.8-5.6)
== END | disposition home or self-care (01) ==
LOC: BIMLAB 09:44
PROVIDERS: PCP Internal Medicine; Visit Provider Internal Medicine
DX: E11.65 Type 2 diabetes mellitus with hyperglycemia (principal); E56.9 Vitamin deficiency, unspecified; E78.1 Pure hyperglyceridemia
CPT/HCPCS: 36415; 80053; 80061; 82306; 83036; 83690; 84484; 85025

== ENCOUNTER → 2023-05-17 | Outpatient (CLI) | payer OTHER, SELFPAY ==
--- OUTSIDE RECORDS SUMMARY | 2023-05-17 11:58 | XMS RPT_ITS | CCD ---
Author Name Unknown Address [address] [place] [address] Organization [facility] Care Team Providers Care Metal Buildings Assembler Name Role Phone Newton Bazan Unavailable Unavailable [...] pressure 102 mm[Hg] Newton Bazan Work Phone: [facility] Work Phone: 09-26-2020 14:49-0400 Systolic blood pressure 146 mm[Hg] Newton Bazan Work Phone: [facility] Work Phone: 09-26-2020 14:43-0400 Body height 193.04 cm Newton Bazan Work Phone: [facility] Work Phone: 09-26-2020 14:43-0400 Body mass index (BMI) [Ratio] 44.31 kg/m2 Newton Bazan Work Phone: [facility]- Work Phone: 09-26-2020 14:43-0400 Body surface area Derived from formula 2.86 m2 Newton Bazan Work Phone: [facility]- Work Phone: 09-26-2020 14:43-0400 Body temperature 97.7 [degF] Newton Bazan Work Phone: [facility]- Work Phone: 09-26-2020 14:43-0400 Body weight 165.11 kg Newton Bazan Work Phone: [facility]- Work Phone: 09-26-2020 14:43-0400 Diastolic blood pressure 100 mm[Hg] Newton Bazan Work Phone: [facility]- Work Phone: 09-26-2020 14:43-0400 Heart rate 86 /min Newton Bazan Work Phone: [facility]- Work Phone: 09-26-2020 14:43-0400 Systolic blood pressure 142 mm[Hg] Newton Bazan Work Phone: [facility]- Work Phone: 06-13-2019 16:14-0400 BMI (Body Mass Index) 44.31 kg/m2 [facility] Work Phone: 06-13-2019 16:14-0400 Body Temperature 98.5 [degF] Newton Bazan [facility] [facility]- Work Phone: 06-13-2019 16:14-0400 Body weight 165.11 kg [facility] Work Phone: 06-13-2019 16:14-0400 BP Diastolic 96 mm[Hg] [facility] Work Phone: 06-13-2019 16:14-0400 BP Systolic 140 mm[Hg] Newton Bazan [facility]- Work Phone: 06-13-2019 16:14-0400 BSA (Body Surface Area) 2.86 m2 Newton Bazan [facility] Work Phone: 06-13-2019 16:14-0400 Height 193.04 cm [facility] Work Phone: 06-13-2019 16:14-0400 Pulse (Heart Rate) 80 /min [facility] Work Phone: Encounters Encounter Date Encounter Type Care Provider Facility Start: 09-26-2020 Office outpatient vi sit 10 minutes Newton Mike Bazan Work Phone[facility] Work Phone: Procedures Date Procedure Procedure Detail Performing Clinician Hernia repair Newton Bazan Immunizations Immunization Date Immunization Notes Care Provider Fa cility 07-18-2020 Moderna COVID-19 Vac cine 100 MCG/0.5ML Intramuscular Suspension Newton Mckeon Hortensia Work Phone: [facility]- Work Phone: 06-20-2020 Moderna COVID-19 Vac cine 100 MCG/0.5ML Intramuscular Suspension Newton Mike Riosee Work Phone: [facility] Work Phone: 01-19-2020 influenza, injectabl e, quadrivalent, preservative free; Translations: [Flulaval Quadrivalent 0.5 ML Intramuscular Suspension Prefilled Syringe] Newton Mike Bazan Work Phone: [facility] Work Phone: Payers Date Payer Category Payer Policy ID Unknown ANTHEM Social History Date Type Detail Facility No drug use No drug use [facility]- Work Phone: NEGATED: Highlighted row - - [facility] Work Phone: Functional Status Date Assessment Result Facility NEGATED: Highlighted row Functional performance Functional status health issues are not documented Disease [facility] Work Phone: Mental Status Date Assessment Result Facility NEGATED: Highlighted row Cognitive function [Interpretation] Cognitive status health issues are not documented Disease [facility] Work Phone: History of Present illness Narrative Note Date & Type Note Facility History of Present illness Narrative rash for a month [facility]- Work Phone: History of Present illness Narrative Note Date & Type Note Facility History of Present illness Narrative rash for a month [facility] Work Phone: Family History Father Name Dates [...] BE BASED ON THE PRIMARY CLINICAL RECORDS. [employer] [facility]. provides no warranty or guarantee of the accuracy or completeness of information in this document.
--- NOTE | 2023-05-17 16:41 | STRESSREP ---
Stress Test Report Exercise stress test. 47-year-old man with a history of chest pain Stress protocol: Resting EKG demonstrates normal sinus rhythm with a rate of 80 bpm resting blood pressure is 148/90 mmHg. The patient exercised according to the regular Dong protocol for a total duration of 8 minutes attaining a maximum heart rate of 166 bpm which was 97% of maximum predicted heart rate; the maximum workload was 10.1 metabolic equivalents. At rest there were no ST or T wave changes noted to suggest ischemia and at peak exercise upsloping ST changes only were noted which did not meet the criteria for ischemia. No clinical angina was noted the test was terminated due to the target heart rate being achieved/fatigue. The peak blood pressure was 210/90 mmHg. Rate-pressure product was 32,200. Conclusion: Normal exercise stress test with no EKG criteria for ischemia no clinical angina noted at a high workload.
== END | disposition home or self-care (01) ==
PROVIDERS: PCP Internal Medicine; Referring Provider Internal Medicine; Visit Provider Internal Medicine
DX: R07.9 Chest pain, unspecified (principal)
CPT/HCPCS: 93017

== ENCOUNTER → 2023-06-01 | Outpatient (CLI) | payer OTHER, SELFPAY ==
--- OUTSIDE RECORDS SUMMARY | 2023-06-01 08:41 | XMS RPT_ITS | CCD ---
Author Name Unknown Address [address] [place] [address] Organization [facility] Care Team Providers Care Memorial Counselor Name Role Phone Newton Bazan Unavailable Unavailable [...] mm[Hg] Newton Bazan Work Phone: [facility] Work Phone: 09-26-2020 14:49-0400 Systolic blood pressure 146 mm[Hg] Newton Bazan Work Phone: [facility] Work Phone: 09-26-2020 14:43-0400 Body height 193.04 cm Newton Bazan Work Phone: [facility] Work Phone: 09-26-2020 14:43-0400 Body mass index (BMI) [Ratio] 44.31 kg/m2 Newton Bazan Work Phone: [facility]- Work Phone: 09-26-2020 14:43-0400 Body surface area Derived from formula 2.86 m2 Newton Bazan Work Phone: [facility]- Work Phone: 09-26-2020 14:43-0400 Body temperature 97.7 [degF] Newton Bazan Work Phone: [facility]- Work Phone: 09-26-2020 14:43-0400 Body weight 165.11 kg Newton Bazan Work Phone: [facility]- Work Phone: 09-26-2020 14:43-0400 Diastolic blood pressure 100 mm[Hg] Newton Bazan Work Phone: [facility]- Work Phone: 09-26-2020 14:43-0400 Heart rate 86 /min Newton Bazan Work Phone: [facility]- Work Phone: 09-26-2020 14:43-0400 Systolic blood pressure 142 mm[Hg] Newton Bazan Work Phone: [facility]- Work Phone: 06-13-2019 16:14-0400 BMI (Body Mass Index) 44.31 kg/m2 [facility] Work Phone: 06-13-2019 16:14-0400 Body Temperature 98.5 [degF] Newton Bazan [facility] [facility]- Work Phone: 06-13-2019 16:14-0400 Body weight 165.11 kg [facility] Work Phone: 06-13-2019 16:14-0400 BP Diastolic 96 mm[Hg] Newton [facility]az[facility] Work Phone: 06-13-2019 16:14-0400 BP Systolic 140 mm[Hg] Newton Bazan [facility]- Work Phone: 06-13-2019 16:14-0400 BSA (Body Surface Area) 2.86 m2 Newton Bazan [facility] Work Phone: 06-13-2019 16:14-0400 Height 193.04 cm Newton Bazan [facility] Work Phone: 06-13-2019 16:14-0400 Pulse (Heart Rate) 80 /min Newton Bazan [facility] Work Phone: Encounters Encounter Date Encounter Type Care Provider Facility Start: 09-26-2020 Office outpatient vi sit 10 minutes Newton Mike Bazan Work Phone: [facility] Work Phone: Procedures Date Procedure Procedure Detail Performing Clinician Hernia repair Newton Bazan Immunizations Immunization Date Immunization Notes Care Provider Fa cility 07-18-2020 Moderna COVID-19 Vac cine 100 MCG/0.5ML Intramuscular Suspension Newton Mckeon Hortensia Work Phone: [facility]- Work Phone: 06-20-2020 Moderna COVID-19 Vac cine 100 MCG/0.5ML Intramuscular Suspension Newton Mike Riosee Work Phone: [facility] Work Phone: 01-19-2020 influenza, injectabl e, quadrivalent, preservative free; Translations: [Flulaval Quadrivalent 0.5 ML Intramuscular Suspension Prefilled Syringe] Newton Mike Bazan Work Phone: [facility] Work Phone: Payers Date Payer Category Payer Policy ID Unknown ANTHEM Social History Date Type Detail Facility No drug use No drug use [facility]- Work Phone: NEGATED: Highlighted row - - [facility] Work Phone: Functional Status Date Assessment Result Facility NEGATED: Highlighted row Functional performance Functional status health issues are not documented Disease [facility] Work Phone: Mental Status Date Assessment Result Facility NEGATED: Highlighted row Cognitive function [Interpretation] Cognitive status health issues are not documented Disease [facility] Work Phone: History of Present illness Narrative Note Date & Type Note Facility History of Present illness Narrative rash for a month [facility]- Work Phone: History of Present illness Narrative Note Date & Type Note Facility History of Present illness Narrative rash for a month [facility] Work Phone: Family History Father Name [...] BE BASED ON THE PRIMARY CLINICAL RECORDS. [facility]. provides no warranty or guarantee of the accuracy or completeness of information in this document.
[2023-06-01 14:33] LABS: Follicle Stimulating Hormone 3.1 mIU/mL; Free T3 2.3 pg/mL (2.18-3.98); Luteinizing Hormone 2.5 mIU/mL; Prolactin 7.4 ng/mL; T4 Free Direct 0.96 ng/dL (0.76-1.46); Thyroid Stim Hormone (TSH) 1.11 uIU/mL (0.358-3.74)
== END | disposition home or self-care (01) ==
LOC: BIMLAB 08:15
PROVIDERS: PCP Internal Medicine; Visit Provider Internal Medicine Endocrinology, Diabetes & Metabolism
DX: E29.1 Testicular hypofunction (principal)
CPT/HCPCS: 36415; 82533; 83001; 83002; 84146; 84402; 84403; 84439; 84443; 84481

== ENCOUNTER → 2023-06-15 | Outpatient (CLI) | payer OTHER, SELFPAY ==
[2023-06-22 14:10] LABS: Testosterone, % Free 3.56 % (1.50-4.20); Testosterone, Free 6.51 ng/dL (5.00-21.00); Testosterone, Total 183 ng/dL (264-916)
== END | disposition home or self-care (01) ==
LOC: BIMLAB 11:40
PROVIDERS: PCP Internal Medicine; Visit Provider Internal Medicine Endocrinology, Diabetes & Metabolism
DX: E29.1 Testicular hypofunction (principal)
CPT/HCPCS: 84402; 84403

== ENCOUNTER → 2024-05-31 | Outpatient (CLI) | payer SELFPAY ==
[2024-05-31 12:36] LABS: Absolute Lymphocyte Count 1.64 X10^3/uL (0.83-4.51); Absolute Neutrophil Count 4.5 X10^3/uL (2.0-7.7); Basophil# 0.04 X10^3/uL; Basophil% 0.6 % (0-1); Eosinophil# 0.19 X10^3/uL; Eosinophils% 2.7 % (0-5); Hematocrit 52.1 % (40-54); Hemoglobin 17.3 g/dL (13.0-16.5); Lymphocyte # 1.64 X10^3/ul (0.83-4.51); Lymphocyte % 23.1 % (19-41); Mean Corp Hgb Conc 33.2 g/dL (32-36); Mean Corpuscular Volume 90.5 fL (80-94); Mean Platelet Vol. 10.9 fl (6.2-12.0); Monocyte# 0.73 X10^3/uL; Monocyte% 10.3 % (0-10); NRBC Flagged by Analyzer 0 % (0-5); Neutrophil # 4.49 X10^3/uL (2.7-7.7); Platelet Count 198 K/mm3 (150-450); RBC Distribution Width CV 13.2 % (11.6-14.6); RBC Distribution Width SD 43.6 fl (35.1-43.9); Red Blood Count 5.76 M/mm3 (4.6-6.2); White Blood Count 7.1 K/mm3 (4.4-11.0)
[2024-05-31 13:10] LABS: Microalbumin,Random Urine < 12.0 mg/L (NO RANGE EST.); Microalbumin:Creatinine Ratio UNABLE TO CALCULATE mg/g CRE
[2024-05-31 13:12] LABS: ALB/GLOB Ratio 1.6 RATIO (0.9-2.4); AST(SGOT) 21 U/L (<=37); Alanine Aminotransfer ALT/SGPT 26 U/L (<=46); Albumin, Serum 4.4 g/dL (3.5-5.0); Alkaline Phosphatase 62 U/L (40-129); Anion Gap 11 (5-15); BUN 15 mg/dL (4-19); BUN/Creat Ratio 16.6 RATIO (10-20); Calcium,Total 9.5 mg/dL (7.6-11.0); Carbon Dioxide 23.1 mmol/L (21.0-32.0); Chloride 102 mmol/L (98-108); Cholesterol 158 mg/dL (<=200); EST Glomerular Filtration Rate 103 (>60); Globulin 2.8 g/dL (2.2-4.2); Glucose 122 mg/dL (70-99); High Density Lipoprotein 26 mg/dL; Low Density Lipoprotein Calc. 88 mg/dL; Potassium 4.6 mmol/L (3.3-5.1); Protein, Total 7.2 g/dL (5.9-8.4); Sodium Level 136 mmol/L (133-145); Total Bilirubin 0.26 mg/dL (0.00-1.30); Triglycerides 220 mg/dL; Very Low Density Lipoprotein 44 mg/dL (5-40); cholesterol:hdl ratio screen 6.15
== END | disposition home or self-care (01) ==
LOC: BIMLAB 08:05
PROVIDERS: PCP Internal Medicine; Referring Provider Internal Medicine; Visit Provider Internal Medicine
DX: E11.9 Type 2 diabetes mellitus without complications (principal); E78.1 Pure hyperglyceridemia
CPT/HCPCS: 36415; 80053; 80061; 82043; 82570; 85025